=== PATIENT | female | born 1950 | race Caucasian/White ===

== ENCOUNTER 2022-09-05 09:06 | Emergency (ER) | payer MEDICARE, OTHER ==
[~2022-09-05] VITALS: Ht 162.6 cm; Wt 95.9 kg
[~2022-09-05 09:06] MED LIST: ALPR0.5T7 PO; AMIT25TA12 PO; AML5T PO; ASPI1TAB20 PO; ATOR20TA50 PO; CAR3125T PO; COEN400C8 OR; ESCI-34 PO; GABA300C10 PO; HYDR25TA5 GT; LOSA-69 PO; METO25TA5 PO; PANT40TA2 PO; TURM500C3 OR; [UNRECOGNIZED DRUG - CODE] PO
[2022-09-05 10:06] VITALS: BP 132/79
[2022-09-05] MEDS ORDERED: LIDOCAINE 1% HCL (LOCAL ANESTH.) INJ 20ML MDV IJ ONE (10:30)
[2022-09-05] MEDS ORDERED: ACETAMINOPHEN 325 MG TAB PO ONE (12:00)
== END 2022-09-05 12:33 | disposition home or self-care (01) ==
LOC: ER 09:06
DX: S01.81XA Laceration without foreign body of other part of head, initial encounter (principal); F32.9 Major depressive disorder, single episode, unspecified; E78.5 Hyperlipidemia, unspecified; I10 Essential (primary) hypertension; Z79.899 Other long term (current) drug therapy; Z86.73 Personal history of transient ischemic attack (TIA), and cerebral infarction without residual deficits; W01.0XXA Fall on same level from slipping, tripping and stumbling without subsequent striking against object, initial encounter; Y93.89 Activity, other specified; Y92.89 Other specified places as the place of occurrence of the external cause; Y99.8 Other external cause status
CPT/HCPCS: 12001; 99282; J2001

== ENCOUNTER 2022-10-08 16:31 | Emergency (ER) | payer OTHER ==
[~2022-10-08] VITALS: Ht 162.6 cm; Wt 93.8 kg
[2022-10-08] MEDS ORDERED: HYDROcodone-ACET 5/325MG TAB PO ONE (21:15)
[2022-10-08] MEDS ORDERED: ONDANSETRON ODT 4 MG TAB PO ONE (21:15)
[2022-10-08] MEDS ORDERED: HYDR-4902 PO (21:16)
[2022-10-08] MEDS ORDERED: ONDA-144 PO (21:16)
[2022-10-08 22:10] VITALS: BP 137/64
== END 2022-10-08 22:28 | disposition home or self-care (01) ==
LOC: ER 16:31
DX: S82.832A Other fracture of upper and lower end of left fibula, initial encounter for closed fracture (principal); R07.81 Pleurodynia; E78.5 Hyperlipidemia, unspecified; I10 Essential (primary) hypertension; Z86.73 Personal history of transient ischemic attack (TIA), and cerebral infarction without residual deficits; W17.89XA Other fall from one level to another, initial encounter; Y93.89 Activity, other specified; Y92.89 Other specified places as the place of occurrence of the external cause; Y99.8 Other external cause status
CPT/HCPCS: 29515; 71111; 73610; 99284; Q0162